=== PATIENT | female | born 1930 | race Caucasian/White ===

== ENCOUNTER → 2017-03-01 | Outpatient (CLI) | payer OTHER ==
[2017-03-01 13:41] LABS: BLOOD UREA NITROGEN 18 mg/dl (7-18); BUN/CREATININE RATIO 17.7 (10-20); CALCIUM 8.9 mg/dl (8.5-10.1); CARBON DIOXIDE 25 mmol/L (21-32); CHLORIDE 110 mmol/L (98-107); GLUCOSE 90 mg/dl (70-99); SODIUM 142 mmol/L (136-145)
== END | disposition home or self-care (01) ==
LOC: C.LABSALHI 14:41
PROVIDERS: ATTEND Nurse Practitioner Family
DX: I10 Essential (primary) hypertension (principal)

== ENCOUNTER → 2017-05-13 | Outpatient (CLI) | payer OTHER ==
[2017-05-13 17:35] LABS: MANUAL MICROSCOPIC REQUIRED? NO; REVIEW REQ? NO; URINE APPEARANCE CLOUDY (CLEAR); URINE BILIRUBIN NEG (NEG); URINE COLOR YELLOW; URINE NITRITE POS (NEG); URINE SPECIFIC GRAVITY 1.018 (1.000-1.030); UROBILINOGEN NEG (NEG)
== END | disposition home or self-care (01) ==
LOC: C.LABSALHI 17:50
PROVIDERS: ATTEND Nurse Practitioner Family
DX: R11.0 Nausea (principal)

== ENCOUNTER 2019-09-18 22:50 | Inpatient (IN) ==
[2019-09-18] MEDS ORDERED: SODIUM CHLORIDE 0.9% 1000ML 500 ML IV ONE (23:08)
[2019-09-18 23:15] LABS: Basophils # (auto) 0.01 K/uL (0-0.2); Basophils % (auto) 0.2 %; Eosinophils # (auto) 0.03 K/uL (0-0.5); Eosinophils % (auto) 0.5 %; Hematocrit (blood only) 37.9 % (37-47); Hemoglobin 12.4 g/dL (12.0-16.0); Immature Granulocytes # (auto) 0.03 K/uL (0.00-0.02); Immature Granulocytes % (auto) 0.5 %; Lymphocytes # (auto) 1.87 K/uL (1.2-3.4); Lymphocytes % (auto) 31.1 %; Mean Corpuscular Hemoglobin 29.5 pg (25-34); Mean Corpuscular Hgb Conc 32.7 g/dL (32-36); Mean Corpuscular Volume 90.2 fL (80-100); Mean Platelet Volume 12.2 fL (7.4-10.4); Monocytes # (auto) 0.72 K/uL (0.11-0.59); Neutrophils # (auto) 3.35 K/uL (1.4-6.5); Neutrophils % (auto) 55.7 %; Platelet Count 202 K/uL (130-400); RDW Coefficient of Variation 14.6 % (11.5-14.5); RDW Standard Deviation 47.5 fL (36.4-46.3); White Blood Count 6.01 K/uL (4.8-10.8)
[2019-09-18 23:25] LABS: Albumin Level 3.9 gm/dl (3.4-5.0); BUN Creatinine Ratio 16.2 (10-20); Calcium 9.3 mg/dl (8.5-10.1); Creatinine Clr Calc Pharmacy 24.2 ml/min; Est GFR (African American) 39.1; Est GFR (Non-African American) 33.8; Potassium 4.2 mmol/L (3.5-5.1)
[2019-09-18 23:30] LABS: Partial Thromboplastin Time 25.9 Seconds (21.0-31.0); Prothrombin Time 10.7 Seconds (9.0-12.0)
[2019-09-18 23:31] LABS: Bilirubin,Total 0.7 mg/dl (0.2-1); Creatine Kinase MB 2.2 ng/ml (0.5-3.6); Globulin 3.7 gm/dl (2.5-4.0); Total Protein 7.6 gm/dl (6.4-8.2); Troponin I 0.021 ng/ml (0-0.045)
[2019-09-18] MEDS ORDERED: DOPAMINE / D5W 400 MG/250 ML BAG IV SCH (23:45)
[2019-09-18] MEDS ORDERED: ATROPINE SULFATE 0.1 MG/ML 10ML SYR IV STA (23:48)
[2019-09-19 00:18] LABS: Magnesium 2.2 mg/dl (1.8-2.4); Phosphorus 3.8 mg/dl (2.5-4.9)
[2019-09-19 00:43] LABS: Appearance Urine Cloudy (Clear); Bacteria Urine Automated 4+ (Negative); Bilirubin Urine Negative (Negative); Blood Urine 1+ (Negative); Color Urine Yellow; Epithelial Cell Urine Auto 0-5 /lpf (0-5); Glucose Urine UA Negative (Negative); Ketones Urine Trace (Negative); Leukocyte Esterase Urine 3+ (Negative); Nitrite Urine Positive (Negative); Protein Urine Negative (Negative); RBC Urine Automated 0-4 /hpf (0-4); Specific Gravity Urine 1.007 (1.000-1.030); Urobilinogen Urine Negative (Negative); WBC Urine Automated >30 /hpf (0-5); pH Urine 5.5 (4.5-7.5)
--- NOTE | 2019-09-19 02:02 | History & Physical Report ---
Date of Service September 19, 2019 Assessment & Plan (1) Third degree heart block: Patient was noted to have intermittent third-degree heart block on monitor, and was confirmed on EKG. She became symptomatic while in the emergency department, when heart rate was in the upper 20s to low 30s, even though recently recorded systolic blood pressure was in the 120s-130s. Echocardiogram ordered. Present on Admission?: Yes (2) Admitted to intensive care unit: Patient is admitted to the ICU due to symptomatic intermittent third- degree heart block. Patient received 0.5 mg atropine IV x1 in the ED, and dopamine infusion to maintain heart rate in the 40s, and allowing systolic blood pressure 150-160. As noted above, patient became symptomatic when heart rate was in the upper 20s to low 30s, and asymptomatic with atropine and dopamine as noted. Present on Admission?: Yes (3) Acute kidney injury: Creatinine 1.39 upon admission, with baseline 0.95-1.00. Suspect secondary to decreased forward flow. Follow laboratory serially. Present on Admission?: Yes (4) Abnormal LFTs: AST 55, ALT 90 upon admission. May be secondary to hepatic congestion. Order ultrasound right upper quadrant of abdomen Present on Admission?: Yes (5) Dementia: Patient has a history of baseline dementia, limiting HPI and ROS. Present on Admission?: Yes History of Present Illness Chief Complaint: The patient was brought to the emergency department from her residence at [facility] due to persistent lightheadedness, dizziness and fatigue over the past few days. Primary Care Provider: [facility] The patient is an 88-year-old female with a past medical history including hypertension, dementia, osteoarthritis, and allergic rhinitis. She is brought to the emergency department due to a few days of persistent lightheadedness, dizziness and fatigue. In the emergency department, work-up was significant for mildly abnormal laboratories: AST 55, ALT 90 and creatinine 1.39. Heart monitor and EKG confirmed intermittent third-degree heart block alternating with sinus bradycardia. The patient did become symptomatic with the third-degree heart block when her heart rate was in the 20s. She was given atropine 0.5 mg IV with improvement baseline heart rate and started on dopamine infusion. The patient became symptomatic when her systolic blood pressure remained in the 120s to 130s while her heart rate was in the 20s, which prompted the use of atropine and dopamine. Allergies Allergy/AdvReac Type Severity Reaction Status Date / Time No Known Allergies Allergy Unverified 08/17/19 13:48 Home Medications Home Medications Medication Instructions Recorded Confirmed Type acetaminophen [Tylenol Extra 500 mg PO QID PRN MDD 3000 mg 08/17/19 09/18/19 History Strength] loratadine [Claritin] 10 mg PO DAILY PRN 08/17/19 09/18/19 History magnesium hydroxide [Milk of 30 ml PO DAILY 08/17/19 09/18/19 History Magnesia] ondansetron HCl [Zofran] 4 mg PO Q6H PRN 08/17/19 09/18/19 History oxycodone [Roxicodone] 5 mg PO DAILY PRN 08/17/19 09/18/19 History sennosides [Senokot] 8.6 mg PO DAILY 08/17/19 09/18/19 History Past Med/Surg History Social History Preferred Language: Indonesian Communication Ability: Effective Electronic Technician Required: No Beliefs That Will Affect Care: None Current Living Situation: Personal Care Facility Other Information That Helps Us Care for You: No Feels Safe at Home: Declines to Answer Safety Concerns: Feels Safe At This Time Smoking Status: Unknown if ever smoked Hx Substance Use: No Review of Systems Review of Systems: Unobtainable due to cognitive status Physical Exam Physical Exam: The patient is awake, and responsive, normocephalic and atraumatic, sitting upright in bed and in no acute distress. HEENT--PERRL, EOMI, mucous membranes and oropharynx dry. Neck--supple. No JVD. No bruits. Thyroid normal, trachea midline, no adenopathy. Heart--bradycardic, systolic heart murmur left lower sternal border. No rubs or gallops. Lungs--clear bilaterally, no respiratory distress, no accessory muscle use. Abdomen--normal bowel sounds and soft. Nontender. Nondistended. Extremities--no cyanosis or clubbing. No edema. Dermatologic--normal skin turgor, normal color, no abnormal lymph nodes, no rash. Neurologic--cranial nerves II through XII grossly intact. Rheumatologic--normal range of motion. Psychiatric--normal affect, confused. Results & Data Vital Signs (Past 12 Hours) Vital Signs Temp Pulse Pulse Resp BP BP Pulse Ox 09/19/19 00:45 44 L 14 160/62 H 100 09/19/19 00:33 50 L 18 198/79 H 100 09/18/19 23:16 67 61 20 100 09/18/19 22:58 98.2 F 38 L 18 179/67 H 100 Laboratory Results Laboratory Results WBC 6.01 K/uL (4.8-10.8) 09/18/19 22:23 RBC 4.20 M/uL (4.2-5.4) 09/18/19 22:23 Hgb 12.4 g/dL (12.0-16.0) 09/18/19 22:23 Hct 37.9 % (37-47) 09/18/19 22:23 MCV 90.2 fL (80-100) 09/18/19 22:23 MCH 29.5 pg (25-34) 09/18/19 22:23 MCHC 32.7 g/dL (32-36) 09/18/19 22:23 RDW Std Deviation 47.5 fL (36.4-46.3) H 09/18/19 22:23 RDW Coeff of Micaela 14.6 % (11.5-14.5) H 09/18/19 22:23 Plt Count 202 K/uL (130-400) 09/18/19 22:23 MPV 12.2 fL (7.4-10.4) H 09/18/19 22:23 Immature Gran % (Auto) 0.5 % 09/18/19 22:23 Neut % (Auto) 55.7 % 09/18/19 22:23 Lymph % (Auto) 31.1 % 09/18/19 22:23 Walsh % (Auto) 12.0 % 09/18/19 22:23 Eos % (Auto) 0.5 % 09/18/19 22:23 Baso % (Auto) 0.2 % 09/18/19 22:23 Immature Gran # (Auto) 0.03 K/uL (0.00-0.02) H 09/18/19 22:23 Neut # (Auto) 3.35 K/uL (1.4-6.5) 09/18/19 22:23 Lymph # (Auto) 1.87 K/uL (1.2-3.4) 09/18/19 22:23 Walsh # (Auto) 0.72 K/uL (0.11-0.59) H 09/18/19 22:23 Eos # (Auto) 0.03 K/uL (0-0.5) 09/18/19 22:23 Baso # (Auto) 0.01 K/uL (0-0.2) 09/18/19 22:23 PT 10.7 Seconds (9.0-12.0) 09/18/19 22:23 INR 1.0 (0.9-1.1) 09/18/19 22:23 APTT 25.9 Seconds (21.0-31.0) 09/18/19 22: PTT Ratio 1.0 09/18/19 22:23 Sodium 138 mmol/L (136-145) 09/18/19 22:23 Potassium 4.2 mmol/L (3.5-5.1) 09/18/19 22:23 Chloride 107 mmol/L (98-107) 09/18/19 22:23 Carbon Dioxide 21 mmol/L (21-32) 09/18/19 22:23 Anion Gap 10.0 (3-11) 09/18/19 22:23 BUN 23 mg/dl (7-18) H 09/18/19 22:23 Creatinine 1.39 mg/dl (0.6-1.2) H 09/18/19 22:23 Est Cr Clr Drug Dosing 24.2 ml/min 09/18/19 22:23 Est GFR ( Amer) 39.1 09/18/19 22:23 Est GFR (Non-Af Amer) 33.8 09/18/19 22:23 BUN/Creatinine Ratio 16.2 (10-20) 09/18/19 22:23 Glucose 96 mg/dl (70-99) 09/18/19 22:23 POC Glucose 121 mg/dl (70-99) H 09/19/19 03:33 Calcium 9.3 mg/dl (8.5-10.1) 09/18/19 22:23 Phosphorus 3.8 mg/dl (2.5-4.9) 09/18/19 22:23 Magnesium 2.2 mg/dl (1.8-2.4) 09/18/19 22:23 Total Bilirubin 0.7 mg/dl (0.2-1) 09/18/19 22:23 AST 55 U/L (15-37) H 09/18/19 22:23 ALT 90 U/L (12-78) H 09/18/19 22:23 Alkaline Phosphatase 93 U/L (45-117) 09/18/19 22:23 Total Creatine Kinase 67 U/L (26-192) 09/18/19 22:23 CK-MB (CK-2) 2.2 ng/ml (0.5-3.6) 09/18/19 22: CK/CKMB % Calc 3.3 (0-3.0) H 09/18/19 22: Troponin I 0.021 ng/ml (0-0.045) 09/18/19 22: Total Protein 7.6 gm/dl (6.4-8.2) 09/18/19 22: Albumin 3.9 gm/dl (3.4-5.0) 09/18/19 22: Globulin 3.7 gm/dl (2.5-4.0) 09/18/19 22: Albumin/Globulin Ratio 1.0 (0.9-2) 09/18/19 22: Lipase 104 U/L (73-393) 09/18/19 22: Urine Color Yellow 09/19/19 00:32 Urine Appearance Cloudy (Clear) A 09/19/19 00:32 Urine pH 5.5 (4.5-7.5) 09/19/19 00:32 Ur Specific [place] 1.007 (1.000-1.030) 09/19/19 00:32 Urine Protein Negative (Negative) 09/19/19 00:32 Urine Glucose (UA) Negative (Negative) 09/19/19 00:32 Urine Ketones Trace (Negative) H 09/19/19 00:32 Urine Blood 1+ (Negative) H 09/19/19 00:32 Urine Nitrite Positive (Negative) A 09/19/19 00:32 Urine Bilirubin Negative (Negative) 09/19/19 00:32 Urine Urobilinogen Negative (Negative) 09/19/19 00:32 Ur Leukocyte Esterase 3+ (Negative) H 09/19/19 00:32 Urine WBC (Auto) >30 /hpf (0-5) H 09/19/19 00:32 Urine RBC (Auto) 0-4 /hpf (0-4) 09/19/19 00:32 U Hyaline Cast (Auto) 1-5 /lpf (0-5) 09/19/19 00:32 U Epithel Cells (Auto) 0-5 /lpf (0-5) 09/19/19 00:32 Urine Bacteria (Auto) 4+ (Negative) H 09/19/19 00:32 None Code Status & VTE Plan Code Status Full code. Ale De was contacted, there was no POLST form on record and no definitive statement regarding CODE STATUS, therefore the patient was treated as full resuscitation. Power of carbider was attempted to be called on phone, and was not reachable. VTE Prophylaxis Plan VTE Prophylaxis will be ordered: Yes Critical Care Time Total Critical Care Time: 40 Total critical care time was 40 minutes PG Care Time/CCT Total # of Minutes Spent Total Time Spent with Patient: Total time spent is greater than 50% in coordination of care (as documented) at patient's floor/unit and/or counseling patient: Total Critical Care Time: 40 Coding Level of Care Code 50062 Initial Inpt Care Lvl 3 Diagnoses Third degree heart block I44.2 Admitted to intensive care unit Z78.9 Acute kidney injury N17.9 Abnormal LFTs R94.5 Dementia F03.90 Time Spent (min) 40
[2019-09-19] MEDS ORDERED: HydrALAZINE HCL 20 MG/ML VIAL IV ONE (03:07)
[2019-09-19] MEDS ORDERED: ICU PROTOCOL FOR HYPERGLYCEMIA PRN (03:12)
--- NOTE | 2019-09-19 03:15 | Critical Care Consultation ---
Date of Consultation September 19, 2019 Assessment & Plan (1) Third degree heart block: Reason Critically Ill: 88-year-old female [facility] from [facility] in third-degree heart block, required atropine followed by dopamine drip and transferred to ICU Neuro - Dementiano home meds -Fall precaution Cardiac - Third-degree AV blockpatient with heart rate in the 20s was treated with atropine and started on dopamine drip -Currently off dopamine drip, still and third-degree block with ventricularly rate in upper 40s, hemodynamically stable -Cardiology consulted, will follow recs, patient will likely need pacer -Cardiac enzymes negative -monitor on telemetry, - consider transvenous pacing if needed, was maintaining rate on dopamine drip which is currently turned off which we would use first HTNdo not use beta-georgina -History of hypertension and currently hypertensive however no meds on med list sent from [facility] Respiratory - No history respiratory disease, currently maintaining sats on room air We will monitor with continuous pulse ox GI - N.p.o. for now Mild transaminitisAST and ALT now mildly elevated but normal on prior admissions -Likely shock liver from poor perfusion while heart rate was in the 20s -We will trend, expect to normalize RENAL/LYTES - AKIbaseline creatinine from prior admissions 0.9, now 1.39 -Likely prerenal, ATN?, Dehydration? - will start IV fluid resuscitation and trend with routine BMPs -Keep maps greater than 65 -Avoid nephrotoxins -Trend - Strict I's and O's ENDO - No history diabetes or thyroid disease, will check TSH HEME - H&H stable, monitor ID - Urinalysis positive for bacteria, culture pending, start Rocephin -Cultures grew E. coli on previous admissions, nonresistant LINES/IV ACCESS - Peripheral IVs DVT PROPHYLAXIS - SCDs, heparin I have personally spent 30 minutes of critical care time in the direct management of this patient. This is a life/limb threatening event. This includes time spent evaluating patient, direct bedside care, chart review, placing orders, interpretation of diagnostic studies, discussion with consultants, patient, and family members, as well as other required patient management activities. This time is exclusive of all separately billable procedures, and teaching time and separate from and in addition to any other critical care service time. Thank you for allowing us to participate in the care of this patient. Please refer to my attending physician's documentation for any further recommendations. (2) Admitted to intensive care unit: (3) Dementia: (4) Hypertension: (5) Acute kidney injury: History of Present Illness Attending Physician: Chuy Gillette MD History of Present Illness 88-[facility]-old [facility] from [facility] with past medical history dementia, HTN, HLD who presented to the emergency department with complaints of lightheadedness, dizziness, fatigue past few days. She was found to be in intermittent third-degree heart block with bradycardia that would enter heart rate of 20s periodically. She was given 1.5 mg atropine and was started on a dopamine drip. She was then transferred to the ICU. On arrival to the ICU patient's heart rate was in the 60s and she was hypertensive. Dopamine drip was stopped and patient remained asymptomatic of heart rate 40s to 50s. Patient denies headache, dizziness, syncope, sore throat, shortness of breath, chest pain, palpitations, nausea or vomiting, abdominal pain. Patient states she feels fine and wants to go home however she is significantly demented. A was unsuccessfully attempted to be contacted regarding CODE STATUS as the [facility] was unable to provide patient's CODE STATUS upon request. Patient currently remains full code and will remain in ICU for now. We will further attempt to contact POA. Allergies Allergy/AdvReac Type Severity Reaction Status Date / Time No Known Allergies Allergy Unverified 08/17/19 13:48 Home Medications Home Medications Medication Instructions Recorded Confirmed Type acetaminophen [Tylenol Extra 500 mg PO QID PRN MDD 3000 mg 08/17/19 09/18/19 History Strength] loratadine [Claritin] 10 mg PO DAILY PRN 08/17/19 09/18/19 History magnesium hydroxide [Milk of 30 ml PO DAILY 08/17/19 09/18/19 History Magnesia] ondansetron HCl [Zofran] 4 mg PO Q6H PRN 08/17/19 09/18/19 History oxycodone [Roxicodone] 5 mg PO DAILY PRN 08/17/19 09/18/19 History sennosides [Senokot] 8.6 mg PO DAILY 08/17/19 09/18/19 History Patient History Social History Preferred Language: Latvian Communication Ability: Effective Human Resources Operations Manager Required: No Beliefs That Will Affect Care: None Current Living Situation: Personal Care Facility Other Information That Helps Us Care for You: No Feels Safe at Home: Declines to Answer Safety Concerns: Feels Safe At This Time Smoking Status: Unknown if ever smoked Hx Substance Use: No Review of Systems Review of Systems: All systems reviewed & are unremarkable except as noted in HPI & below Physical Exam Constitutional: + frail appearing, cooperative and comfortable Eyes: PERRL, conjunctivae normal, anicteric sclerae ENMT: external ear and nose normal, oropharynx normal Neck: trachea midline, no thyromegaly Respiratory: normal respiratory effort, lungs clear to auscultation Cardiovascular: Rate/Rhythm: + bradycardic Heart Sounds: + murmur Vessels: no JVD Extremities: normal capillary refill; no edema Gastrointestinal (Abdomen): normal bowel sounds, soft, nontender, no h epatosplenomegaly Musculoskeletal: no cyanosis or clubbing, extremities motor strength 5/5 Skin: no rashes, warm and dry Neurologic: PERRL, EOMI, accommodation nl, no face palsy, no dysarthria Psychiatric: Orientation: oriented to person and cooperative; + not oriented to place and + not oriented to time Results & Data ([facility]) Vital Signs (Past 12 Hours) Vital Signs Temp Pulse Pulse Resp BP BP Pulse Ox 09/19/19 00:45 44 L 14 160/62 H 100 09/19/19 00:33 50 L 18 198/79 H 100 09/18/19 23:16 67 61 20 100 09/18/19 22:58 36.8 C 38 L 18 179/67 H 100 Coding Level of Care Code Critical Care 1st 30-74 mins Diagnoses Third degree heart block I44.2 Admitted to intensive care unit Z78.9 Dementia F03.90 Hypertension I10 Acute kidney injury N17.9
[2019-09-19] MEDS ORDERED: PNEUMOCOCCAL POLYSACCHARIDES 25 MCG/0.5 ML VIAL/SYR IM ONE (03:44)
[2019-09-19] MEDS ORDERED: PNEUMOCOCCAL ADMINISTRATION CHARGE ONE (03:44)
--- NOTE | 2019-09-19 03:47 | Emergency Department Note ---
Entered by Bubba Giraldo acting as a scribe for History of Present Illness General Chief complaint: Arrhythmia/Palpitations Stated complaint: DIZZY Time Seen by Provider: 09/18/19 22:58 Source: patient and other (nurse) Limitations: other (dementia) History of Present Illness Onset (ago): day(s) (a few days ago) Location: head Pain Consistency: + other (persistent) Quality: + other (lightheadedness) Associated symptoms: + other (Positive for dizziness. Negative for CP and SOB.) The patient is an 88 year old female who presents to the emergency department with complaints of persistent lightheadedness beginning a few days ago. Per nurse, the patient is a resident at [facility]. She states that the patient has been dizzy and lightheaded for the last few days. She notes that the patient has not had any CP and SOB. She reports that the patient has a history of dementia and hypertension. The patient states that she is not on any blood thinners. HPI limited secondary to dementia. Home Medications Home Medications Medication Instructions Recorded Confirmed Type acetaminophen [Tylenol Extra 500 mg PO QID PRN MDD 3000 mg 08/17/19 09/18/19 History Strength] loratadine [Claritin] 10 mg PO DAILY PRN 08/17/19 09/18/19 History magnesium hydroxide [Milk of 30 ml PO DAILY 08/17/19 09/18/19 History Magnesia] ondansetron HCl [Zofran] 4 mg PO Q6H PRN 08/17/19 09/18/19 History oxycodone [Roxicodone] 5 mg PO DAILY PRN 08/17/19 09/18/19 History sennosides [Senokot] 8.6 mg PO DAILY 08/17/19 09/18/19 History Allergies Allergy/AdvReac Type Severity Reaction Status Date / Time No Known Allergies Allergy Unverified 08/17/19 13:48 Past Med/Surg History Social History Preferred Language: Khmer Communication Ability: Effective Road Engineer Required: No Beliefs That Will Affect Care: None Current Living Situation: Personal Care Facility Other Information That Helps Us Care for You: No Feels Safe at Home: Declines to Answer Safety Concerns: Feels Safe At This Time Smoking Status: Unknown if ever smoked Hx Substance Use: No Review of Systems ROS limited secondary to dementia. Physical Exam Vital Signs Vital Signs - 24 hr 09/18/19 22:58 09/18/19 23:16 09/19/19 00:33 Temperature 36.8 C Temperature Source Oral Pulse Rate 38 L 67 Pulse Rate [Finger] 61 50 L Pulse Rhythm Irregular Irregular Pulse Rhythm [Finger] Regular Regular Pulse Strength Normal Pulse Strength [Finger] Normal Normal Respiratory Rate 18 20 18 Respiratory Effort / Characteristics Non-Labored Spontaneous Non-Labored Spontaneous Non-Labored Spontaneous Respiratory Depth Normal Normal Normal Respiratory Pattern Regular Regular Regular Blood Pressure 179/67 H Blood Pressure [Right Arm] 198/79 H Blood Pressure Mean 104 Blood Pressure Mean [Right Arm] 118 Blood Pressure Position Lying Blood Pressure Position [Right Arm] Lying Lying Pulse Oximetry 100 100 100 Oxygen Delivery Method Room Air Room Air Room Air Sepsis Recent Fever Within 48 Hours No Sepsis New/Unexplained Change in Mental Status No Sepsis Action Taken by Nursing No Action Required 09/19/19 00:45 Temperature Temperature Source Pulse Rate 44 L Pulse Rate [Finger] Pulse Rhythm Pulse Rhythm [Finger] Pulse Strength Pulse Strength [Finger] Respiratory Rate 14 Respiratory Effort / Characteristics Respiratory Depth Respiratory Pattern Blood Pressure 160/62 H Blood Pressure [Right Arm] Blood Pressure Mean 94 Blood Pressure Mean [Right Arm] Blood Pressure Position Blood Pressure Position [Right Arm] Pulse Oximetry 100 Oxygen Delivery Method Sepsis Recent Fever Within 48 Hours Sepsis New/Unexplained Change in Mental Status Sepsis Action Taken by Nursing GENERAL: Awake, alert, well-appearing, in no acute distress HENT: Normocephalic, atraumatic. Oropharynx unremarkable. EYES: Normal conjunctiva. Sclera non-icteric. NECK: Supple. No nuchal rigidity. FROM. No JVD. RESPIRATORY: Clear to auscultation. CARDIAC: Regular rate, normal rhythm. Extremities warm and well perfused. Pulses equal. ABDOMEN: Soft, non-distended. No tenderness to palpation. No rebound or guarding. No masses. RECTAL: Deferred. MUSCULOSKELETAL: Chest examination reveals no tenderness. The back is symmetrical on inspection without obvious abnormality. There is no CVA tenderness to palpation. No joint edema. LOWER EXTREMITIES: Calves are equal size bilaterally and non-tender. No edema. No discoloration. NEURO: Normal sensorium. No sensory or motor deficits noted. Does not know the day of the week but is able to answer all questions. SKIN: No rash or jaundice noted. Course Course 2300: The patient was evaluated in room C3. A complete history and physical exam was performed. 2354: The patient had a brief episode of asystole. She responded to atropine and she was placed on a dopamine drip. I attempted to contact the daughter but got no answer so I left a message. 0005: Upon reevaluation, the patient is stable. I discussed the findings and the treatment plan with the patient. She expresses agreement and understanding. I spoke with Dr. Gillette of the [facility] Hospitalist Service. The patient will be evaluated for further management. Reevaluation(s) Additional Reevaluation(s): I reviewed the patient's case with Dr. Gillette - Hospitalist, [facility]. He will evaluate the patient for further management. Consultations Time: 00:05 Administered Medications Dopamine HCl/Dextrose (Dopamine / D5w) 400 mg in 250 mls @ 11.963 mls/hr IV .[id number] [facility]; Protocol Stop: 10/18/19 23:44 Last Titration: 09/19/19 03:00 Dose: 0 mcg/kg/min, 0 mls/hr Documented by: [id number] Titration: 09/19/19 00:50 Dose: 5 mcg/kg/min, 12 mls/hr Documented by: [id number] Titration: 09/19/19 00:48 Dose: 10 mcg/kg/min, 23.9 mls/hr Documented by: [id number] Admin: 09/19/19 00:34 Dose: 5 mcg/kg/min, 12 mls/hr Documented by: [id number] Cosigned by: [id number] Discontinued Medications Atropine Sulfate (Atropine Sulfate) 0.5 mg IV NOW STA Stop: 09/18/19 23:49 Last Admin: 09/18/19 23:48 Dose: 0.5 mg Documented by: [id number] Hydralazine HCl (Hydralazine Hcl) 5 mg IV NOW ONE Stop: 09/19/19 03:08 Last Admin: 09/19/19 03:22 Dose: 5 mg Documented by: [id number] Sodium Chloride (Nss 1000ml) 500 mls @ 999 mls/hr IV .Q31M ONE Stop: 09/18/19 23:38 Last Infusion: 09/19/19 00:35 Dose: 0 mls/hr Documented by: [id number] Admin: 09/19/19 00:04 Dose: 999 mls/hr Documented by: [id number] Critical Care Time Critical Care Time: Yes Total Critical Care Time: 30 I have personally spent 30 minutes of critical care time in the direct management of this patient. This includes bedside care, interpretation of diagnostic studies, and testing, discussion with consultants, patient, and family members, and other required patient management activities. This 30 minutes is in excess of all separately billable procedures. Medical Decision Making Differential Diagnosis Differential Diagnosis includes but is not limited to dehydration, stroke, anemia, hypoglycemia, hyponatremia, hypernatremia, urinary tract infection, pneumonia, bronchitis, sepsis, gastroenteritis, additional abdominal pathology, metabolic abnormalities and infections. Medical Records Attestation: I reviewed the patient's medical records. Home Medications Current Medication List: was personally reviewed by me Laboratory Data Attestation: I reviewed the patient's lab results. Result diagrams: 09/18/19 22:23 09/18/19 22:23 Lab Results 09/18/19 09/18/19 09/18/19 Range/Units 22:23 22:23 22:23 WBC 6.01 (4.8-10.8) K/uL RBC 4.20 (4.2-5.4) M/uL Hgb 12.4 (12.0-16.0) g/dL Hct 37.9 (37-47) % MCV 90.2 (80-100) fL MCH 29.5 (25-34) pg MCHC 32.7 (32-36) g/dL RDW Std Deviation 47.5 H (36.4-46.3) fL RDW Coeff of Micaela 14.6 H (11.5-14.5) % Plt Count 202 (130-400) K/uL MPV 12.2 H (7.4-10.4) fL Immature Gran % (Auto) 0.5 % Neut % (Auto) 55.7 % Lymph % (Auto) 31.1 % Oxford % (Auto) 12.0 % Eos % (Auto) 0.5 % Baso % (Auto) 0.2 % Immature Gran # (Auto) 0.03 H (0.00-0.02) K/uL Neut # (Auto) 3.35 (1.4-6.5) K/uL Lymph # (Auto) 1.87 (1.2-3.4) K/uL Oxford # (Auto) 0.72 H (0.11-0.59) K/uL Eos # (Auto) 0.03 (0-0.5) K/uL Baso # (Auto) 0.01 (0-0.2) K/uL PT 10.7 (9.0-12.0) Seconds INR 1.0 (0.9-1.1) APTT 25.9 (21.0-31.0) Seconds PTT Ratio 1.0 Sodium 138 (136-145) mmol/L Potassium 4.2 (3.5-5.1) mmol/L Chloride 107 (98-107) mmol/L Carbon Dioxide 21 (21-32) mmol/L Anion Gap 10.0 (3-11) BUN 23 H (7-18) mg/dl Creatinine 1.39 H (0.6-1.2) mg/dl Est Cr Clr Drug Dosing 24.2 ml/min Est GFR ( Amer) 39.1 Est GFR (Non-Af Amer) 33.8 BUN/Creatinine Ratio 16.2 (10-20) Glucose 96 (70-99) mg/dl POC Glucose (70-99) mg/dl Calcium 9.3 (8.5-10.1) mg/dl Phosphorus 3.8 (2.5-4.9) mg/dl Magnesium 2.2 (1.8-2.4) mg/dl Total Bilirubin 0.7 (0.2-1) mg/dl AST 55 H (15-37) U/L ALT 90 H (12-78) U/L Alkaline Phosphatase 93 (45-117) U/L Total Creatine Kinase 67 (26-192) U/L CK-MB (CK-2) 2.2 (0.5-3.6) ng/ml CK/CKMB % Calc 3.3 H (0-3.0) Troponin I 0.021 (0-0.045) ng/ml Total Protein 7.6 (6.4-8.2) gm/dl Albumin 3.9 (3.4-5.0) gm/dl Globulin 3.7 (2.5-4.0) gm/dl Albumin/Globulin Ratio 1.0 (0.9-2) Lipase 104 (73-393) U/L Urine Color Urine Appearance (Clear) Urine pH (4.5-7.5) Ur Specific Burns (1.000-1.030) Urine Protein (Negative) Urine Glucose (UA) (Negative) Urine Ketones (Negative) Urine Blood (Negative) Urine Nitrite (Negative) Urine Bilirubin (Negative) Urine Urobilinogen (Negative) Ur Leukocyte Esterase (Negative) Urine WBC (Auto) (0-5) /hpf Urine RBC (Auto) (0-4) /hpf U Hyaline Cast (Auto) (0-5) /lpf U Epithel Cells (Auto) (0-5) /lpf Urine Bacteria (Auto) (Negative) 09/19/19 09/19/19 Range/Units 00:06 00:32 WBC (4.8-10.8) K/uL RBC (4.2-5.4) M/uL Hgb (12.0-16.0) g/dL Hct (37-47) % MCV (80-100) fL MCH (25-34) pg MCHC (32-36) g/dL RDW Std Deviation (36.4-46.3) fL RDW Coeff of Micaela (11.5-14.5) % Plt Count (130-400) K/uL MPV (7.4-10.4) fL Immature Gran % (Auto) % Neut % (Auto) % Lymph % (Auto) % Oxford % (Auto) % Eos % (Auto) % Baso % (Auto) % Immature Gran # (Auto) (0.00-0.02) K/uL Neut # (Auto) (1.4-6.5) K/uL Lymph # (Auto) (1.2-3.4) K/uL Oxford # (Auto) (0.11-0.59) K/uL Eos # (Auto) (0-0.5) K/uL Baso # (Auto) (0-0.2) K/uL PT (9.0-12.0) Seconds INR (0.9-1.1) APTT (21.0-31.0) Seconds PTT Ratio Sodium (136-145) mmol/L Potassium (3.5-5.1) mmol/L Chloride (98-107) mmol/L Carbon Dioxide (21-32) mmol/L Anion Gap (3-11) BUN (7-18) mg/dl Creatinine (0.6-1.2) mg/dl Est Cr Clr Drug Dosing ml/min Est GFR ( Amer) Est GFR (Non-Af Amer) BUN/Creatinine Ratio (10-20) Glucose (70-99) mg/dl POC Glucose 108 H (70-99) mg/dl Calcium (8.5-10.1) mg/dl Phosphorus (2.5-4.9) mg/dl Magnesium (1.8-2.4) mg/dl Total Bilirubin (0.2-1) mg/dl AST (15-37) U/L ALT (12-78) U/L Alkaline Phosphatase (45-117) U/L Total Creatine Kinase (26-192) U/L CK-MB (CK-2) (0.5-3.6) ng/ml CK/CKMB % Calc (0-3.0) Troponin I (0-0.045) ng/ml Total Protein (6.4-8.2) gm/dl Albumin (3.4-5.0) gm/dl Globulin (2.5-4.0) gm/dl Albumin/Globulin Ratio (0.9-2) Lipase (73-393) U/L Urine Color Yellow Urine Appearance Cloudy A (Clear) Urine pH 5.5 (4.5-7.5) Ur Specific Burns 1.007 (1.000-1.030) Urine Protein Negative (Negative) Urine Glucose (UA) Negative (Negative) Urine Ketones Trace H (Negative) Urine Blood 1+ H (Negative) Urine Nitrite Positive A (Negative) Urine Bilirubin Negative (Negative) Urine Urobilinogen Negative (Negative) Ur Leukocyte Esterase 3+ H (Negative) Urine WBC (Auto) >30 H (0-5) /hpf Urine RBC (Auto) 0-4 (0-4) /hpf U Hyaline Cast (Auto) 1-5 (0-5) /lpf U Epithel Cells (Auto) 0-5 (0-5) /lpf Urine Bacteria (Auto) 4+ H (Negative) Imaging Data Attestation: I personally reviewed and interpreted this imaging study as follows: My Impression: 1 VIEW CHEST X-RAY: No evidence of pneumonia, congestion, or pneumothorax. Chronic changes. ECG Data Attestation: I personally reviewed and interpreted this ECG as follows: Indication: + palpitations Rate (beats per minute): ventricular rate [address] segments: no ST depression and no ST elevation Additional Comments: 3rd degree heart block, QTC 423. EKG 2: Sinus bradycardia, prolonged QT, rate of 47. Blood Pressure Blood Pressure Findings: Elevated blood pressure Blood Pressure Disposition: further management by hospitalist MDM Narrative This is an 88-year-old female who presents to the emergency department with third-degree block. The paperwork accompanying this patient is unclear whether she is a full code. I did contact this patient's daughter however there was no answer. Messages were left. In the meanwhile patient was given magnesium normal saline bolus and atropine. The atropine converted the patient back to a normal sinus rhythm. I did discuss the case with the hospitalist service as well as the cardiology service. The decision was made to start the patient on a dopamine drip. Patient is in agreement with the treatment plan. Impression & Plan Third degree heart block, Dementia, Hypertension, Acute kidney injury Discharge Plan Visit Data Chief Complaint: Arrhythmia/Palpitations Stated Complaint: DIZZY ED Provider: Cali Santacruz Discharge Problem: Third degree heart block, Dementia, Hypertension, Acute kidney injury Patient Disposition: Being Evaluated by Hospitalist Discharge Instructions Interventions: ED Discharge Assessment Last Done: 09/19/19 02:18 The scribe's documentation has been prepared under my direction and personally reviewed by me in its entirety. I confirm that the note above accurately reflects all work, treatment, procedures, and medical decision making performed by me.
[2019-09-19] MEDS ORDERED: SODIUM CHLORIDE 0.9% 1000ML 1,000 ML IV SCH (04:00)
[2019-09-19] MEDS: cefTRIAXone SODIUM 1,000 MG in DEXTROSE 5% 50 ML IV SCH (04:31)
[2019-09-19 04:49] LABS: Basophils # (auto) 0.01 K/uL (0-0.2); Basophils % (auto) 0.1 %; Eosinophils # (auto) 0.02 K/uL (0-0.5); Eosinophils % (auto) 0.3 %; Hematocrit (blood only) 38.3 % (37-47); Immature Granulocytes # (auto) 0.04 K/uL (0.00-0.02); Immature Granulocytes % (auto) 0.5 %; Lymphocytes # (auto) 1.33 K/uL (1.2-3.4); Lymphocytes % (auto) 17.9 %; Mean Corpuscular Hemoglobin 30.1 pg (25-34); Mean Corpuscular Hgb Conc 33.9 g/dL (32-36); Mean Corpuscular Volume 88.7 fL (80-100); Mean Platelet Volume 11.5 fL (7.4-10.4); Monocytes # (auto) 0.73 K/uL (0.11-0.59); Monocytes % (auto) 9.8 %; Neutrophils # (auto) 5.32 K/uL (1.4-6.5); Neutrophils % (auto) 71.4 %; Platelet Count 197 K/uL (130-400); RDW Coefficient of Variation 14.3 % (11.5-14.5); RDW Standard Deviation 46.7 fL (36.4-46.3); Red Blood Count 4.32 M/uL (4.2-5.4); White Blood Count 7.45 K/uL (4.8-10.8)
[2019-09-19 05:15] LABS: INR 1.1 (0.9-1.1); Partial Thromboplastin Ratio 0.9; Partial Thromboplastin Time 25.5 Seconds (21.0-31.0); Prothrombin Time 10.8 Seconds (9.0-12.0)
[2019-09-19 06:12] LABS: Albumin Level 3.8 gm/dl (3.4-5.0); BUN Creatinine Ratio 16.8 (10-20); Bilirubin Direct 0.2 mg/dl (0-0.2); Bilirubin,Total 0.9 mg/dl (0.2-1); Calcium 9.1 mg/dl (8.5-10.1); Est GFR (African American) 46.7; Est GFR (Non-African American) 40.3; Magnesium 2.2 mg/dl (1.8-2.4); Phosphorus 3.2 mg/dl (2.5-4.9); Potassium 3.5 mmol/L (3.5-5.1); Total Protein 7.5 gm/dl (6.4-8.2)
--- NOTE | 2019-09-19 06:44 | Ultrasound Report ---
ABDOMINAL ULTRASOUND, RIGHT UPPER QUADRANT HISTORY: abnormal LFT's, 3rd degree HB. COMPARISON: Abdominal series August 17, 2019. FINDINGS: Exam is compromised by suboptimal penetration. No hepatic lesions are identified and there is no biliary ductal dilatation. The common bile duct measures 4 mm in caliber. No gallstones are not ed. There is no gallbladder wall thickening. The pancreatic body is normal. Head and tail are obscure d. There is no right hydronephrosis. IMPRESSION: 1. No gallstones or biliary ductal dilatation. 2. Exam mildly compromised by suboptimal penetration. Partially obscured pancreas. ACT 112: Negative or not required by law. Electronically signed by: Srikanth Euceda M.D. 09/19/2019 6:42 AM
--- NOTE | 2019-09-19 06:52 | XRay Report ---
XR chest 1V portable CLINICAL HISTORY: 88 years-old Female presenting with Chest Pain. TECHNIQUE: Portable upright AP view of the chest was obtained. COMPARISON: 08/17/2019. FINDINGS: Atherosclerosis of the aortic arch. Cardiac silhouette normal in size. Elevation of the right hemidia phragm as on prior exam. Heterogeneity lung parenchyma. Rounded lucency at the left lung base as on p rior exam. Minimal basilar opacities. No pleural effusion or pneumothorax. Degenerative changes of th e thoracic spine. Scoliotic curvature of the spine also noted. Degenerative changes of the glenohumer al joints. Surgical clips project over the right axilla. Right lateral rib fractures may be present. Mild gaseous distention of bowel. IMPRESSION: 1. Minimal basilar opacities likely atelectasis or scarring. No convincing evidence of acute cardiop ulmonary disease. 2. Rounded lucency at the left lung base may the artifactual related to overlapping shadows or could suggest the presence of a hernia. This is unchanged. ACT 112: Negative or not required by law. Electronically signed by: Nikunj Adams M.D. 09/19/2019 6:51 AM
[2019-09-19] MEDS ORDERED: POTASSIUM CHLORIDE 20 MEQ TABCR PO STA ×2 (07:57→11:35)
--- NOTE | 2019-09-19 08:03 | Hospitalist Progress Note ---
Date of Service September 19, 2019 Assessment & Plan (1) Third degree heart block: Pacemaker placed in the left chest without issue, for intermittent third- degree heart block. Echocardiogram: Left ventricular systolic function is normal. No regional wall motion abnormality noted. There is borderline concentric left ventricular hypertrophy. Ejection fraction is 65 to 70%. 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 . (2) Admitted to intensive care unit: Patient is admitted to the ICU due to symptomatic intermittent third- degree heart block. Patient received 0.5 mg atropine IV x1 in the ED, and dopamine infusion to maintain heart rate in the 40s, and allowing systolic blood pressure 150-160. As noted above, patient became symptomatic when heart rate was in the upper 20s to low 30s, and asymptomatic with atropine and dopamine as noted. (3) Acute kidney injury: Creatinine 1.39 upon admission, with baseline 0.95-1.00. Avoid nephrotoxic agents Continue monitoring creatinine and GFR (4) Abnormal LFTs: AST 55, ALT 90-->44/82 upon admission. Continue trending down (5) Dementia: Patient has a history of baseline dementia, limiting HPI and ROS. Subjective Patient seen and examined at the bedside. Patient is s/p pacemaker placement. Patient tolerated procedure well. Her heart rate is 92 now beats per minute. Patient continues to be severely demented and it is difficult to keep her from raising her left hand to prevent the pacemaker to be dislodged. This is patient's baseline. Patient is poor historian and due to severe dementia it is difficult to review systems with her. Patient is now able to eat but needs sitter one-to-one who will observe her and feed her. Patient is not febrile. Review of Systems Review of Systems: All systems reviewed & are unremarkable except as noted in HPI & below Physical Exam Constitutional: WD/WN, vitals as above well developed and + cachectic Eyes: PERRL, conjunctivae normal, anicteric sclerae ENMT: external ear and nose normal, oropharynx normal Neck: trachea midline, no thyromegaly Respiratory: normal respiratory effort, lungs clear to auscultation Cardiovascular: Rate/Rhythm: + bradycardic Gastrointestinal (Abdomen): normal bowel sounds, soft, nontender, no hepatosplenomegaly Musculoskeletal: no cyanosis or clubbing, extremities motor strength 5/5 Skin: no rashes, warm and dry Neurologic: patellar DTR's 2+ bilat, sensation intact Psychiatric: A+Ox3, euthymic affect Lymphatic: no cervical or axillary lymphadenopathy Results & Data ([facility]) Vital Signs (Past 12 Hours) Vital Signs Temp Pulse Pulse Resp BP BP Pulse Ox 09/19/19 06:00 48 L 19 163/72 H 09/19/19 05:31 50 L 16 153/75 H 09/19/19 05:02 44 L 19 169/89 H 09/19/19 04:31 51 L 20 160/75 H 100 09/19/19 04:16 53 L 21 181/66 H 09/19/19 04:01 36.5 C 60 25 H 173/96 H 09/19/19 03:46 51 L 28 H 172/59 H 100 09/19/19 03:31 44 L 21 154/67 H 100 09/19/19 03:21 36.5 C 47 L 18 167/66 H 100 09/19/19 03:16 48 L 17 178/72 H 99 09/19/19 03:01 49 L 18 184/97 H 98 09/19/19 02:59 48 L 09/19/19 02:56 47 L 18 167/67 H 09/19/19 00:45 44 L 14 160/62 H 100 09/19/19 00:33 50 L 18 198/79 H 100 09/18/19 23:16 67 61 20 100 09/18/19 22:58 36.8 C 38 L 18 179/67 H 100 PG Care Time/CCT Total # of Minutes Spent Total Time Spent with Patient: Total time spent is greater than 50% in coordination of care (as documented) at patient's floor/unit and/or counseling patient: Coding Level of Care Code 41156 Subseq Hosp Care Lvl 3 Diagnoses Third degree heart block I44.2 Admitted to intensive care unit Z78.9 Acute kidney injury N17.9 Abnormal LFTs R94.5 Dementia F03.90
[2019-09-19] MEDS ORDERED: LIDOCAINE HCL 1% 20 ML VIAL ONE (08:59)
[2019-09-19] MEDS ORDERED: BACITRACIN INJ 50,000 UNIT VIAL ONE (09:00)
[2019-09-19] MEDS ORDERED: BACITRACIN OINT 0.9 GM PKT ONE (09:00)
--- NOTE | 2019-09-19 09:01 | Cardiology Consultation ---
Date of Consultation September 19, 2019 Assessment & Plan (1) Third degree heart block: She presents with intermittent dizziness and documentation of intermittent complete heart block with pauses as long as 10 seconds. She has frequent episodes of 2-1 heart block. She has evidence of organ damage including a slightly elevated creatinine due to hypoperfusion. She is on no AV lasha blocking medications and there appears to be no reversible cause of her heart block. She requires a pacemaker. I discussed it with her, she is confused but in general agreeable. I also discussed it with her Sister Isatu Talavera who is power of attorney lawyer, we are all in agreement that she should have a pacemaker. I discussed the indications, procedure, risks and alternatives with them. We will take her emergently to the laboratory for pacemaker implantation. History of Present Illness Reason for Consultation: Complete heart block Attending Physician: Gregor Sanchez MD History of Present Illness This is an 88-year-old woman who does not have a cardiac history to my knowledge, she did have an echocardiogram in [place] in 2013 which was not significantly abnormal. She has been having intermittent dizziness and presented to the emergency room on September 18, 2019. She was having intermittent high-grade AV block and 2-1 AV block with occasional one-to-one AV conduction. She seems to be on no medications to cause AV conduction block. During long pauses (she had pauses as long as 10 seconds this morning) she loses consciousness which I witnessed. She does not recollect these events but has significant dementia. Allergies Allergy/AdvReac Type Severity Reaction Status Date / Time No Known Allergies Allergy Unverified 08/17/19 13:48 Home Medications Home Medications Medication Instructions Recorded Confirmed Type acetaminophen [Tylenol Extra 500 mg PO QID PRN MDD 3000 mg 08/17/19 09/18/19 History Strength] loratadine [Claritin] 10 mg PO DAILY PRN 08/17/19 09/18/19 History magnesium hydroxide [Milk of 30 ml PO DAILY 08/17/19 09/18/19 History Magnesia] ondansetron HCl [Zofran] 4 mg PO Q6H PRN 08/17/19 09/18/19 History oxycodone [Roxicodone] 5 mg PO DAILY PRN 08/17/19 09/18/19 History sennosides [Senokot] 8.6 mg PO DAILY 08/17/19 09/18/19 History Patient History Medical History Breast cancer Dementia HTN (hypertension) Surgical History No pertinent past surgical history Family History Other Family history non-contributory Social History Preferred Language: Algerian Communication Ability: Effective 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 HEENT: Unremarkable Neck: No jugular venous distention, carotid pulses are normal and equal bilaterally without bruits. Pulmonary: Clear to auscultation bilaterally. Cardiac: Regular rhythm with a soft systolic murmur, no gallop or rub. Abdomen: Soft, nontender with normal bowel sounds. Extremities: No edema. Distal pulses intact. Neurologic: No focal findings. Gait is steady. Skin: No rash, ecchymoses or petechiae. Results & Data Vital Signs (Past 12 Hours) Vital Signs Temp Pulse Pulse Resp BP BP Pulse Ox 09/19/19 08:00 76 09/19/19 07:30 71 19 154/61 H 100 09/19/19 07:01 78 17 147/88 H 100 09/19/19 06:00 48 L 19 163/72 H 09/19/19 05:31 50 L 16 153/75 H 09/19/19 05:02 44 L 19 169/89 H 09/19/19 04:31 51 L 20 160/75 H 100 09/19/19 04:16 53 L 21 181/66 H 09/19/19 04:01 36.5 C 60 25 H 173/96 H 09/19/19 03:46 51 L 28 H 172/59 H 100 09/19/19 03:31 44 L 21 154/67 H 100 09/19/19 03:21 36.5 C 47 L 18 167/66 H 100 09/19/19 03:16 48 L 17 178/72 H 99 09/19/19 03:01 49 L 18 184/97 H 98 09/19/19 02:59 48 L 09/19/19 02:56 47 L 18 167/67 H 09/19/19 00:45 44 L 14 160/62 H 100 09/19/19 00:33 50 L 18 198/79 H 100 09/18/19 23:16 67 61 20 100 09/18/19 22:58 36.8 C 38 L 18 179/67 H 100 Laboratory Results Cardiac Enzymes 09/18/19 09/19/19 Range/Units 22:23 04:29 AST 55 H 44 H (15-37) U/L CK-MB (CK-2) 2.2 (0.5-3.6) ng/ml Troponin I 0.021 (0-0.045) ng/ml Coagulation 09/18/19 09/19/19 Range/Units 22:23 04:29 PT 10.7 10.8 (9.0-12.0) Seconds APTT 25.9 25.5 (21.0-31.0) Seconds CBC 09/18/19 09/19/19 Range/Units 22:23 04:29 WBC 6.01 7.45 (4.8-10.8) K/uL RBC 4.20 4.32 (4.2-5.4) M/uL Hgb 12.4 13.0 (12.0-16.0) g/dL Hct 37.9 38.3 (37-47) % Plt Count 202 197 (130-400) K/uL Neut # (Auto) 3.35 5.32 (1.4-6.5) K/uL Lymph # (Auto) 1.87 1.33 (1.2-3.4) K/uL [place] # (Auto) 0.72 H 0.73 H (0.11-0.59) K/uL Eos # (Auto) 0.03 0.02 (0-0.5) K/uL Baso # (Auto) 0.01 0.01 (0-0.2) K/uL Comprehensive Metabolic Panel 09/18/19 09/19/19 Range/Units 22:23 04:29 Sodium 138 142 (136-145) mmol/L Potassium 4.2 3.5 D (3.5-5.1) mmol/L Chloride 107 112 H (98-107) mmol/L Carbon Dioxide 21 22 (21-32) mmol/L BUN 23 H 20 H (7-18) mg/dl Creatinine 1.39 H 1.20 (0.6-1.2) mg/dl Glucose 96 106 H (70-99) mg/dl Calcium 9.3 9.1 (8.5-10.1) mg/dl Direct Bilirubin 0.2 (0-0.2) mg/dl AST 55 H 44 H (15-37) U/L ALT 90 H 82 H (12-78) U/L Alkaline Phosphatase 93 92 (45-117) U/L Total Protein 7.6 7.5 (6.4-8.2) gm/dl Albumin 3.9 3.8 (3.4-5.0) gm/dl Intake and Output 09/18/19 09/19/19 09/19/19 22:59 06:59 14:59 Intake Total 579.597 / 579.597 0 / 0 Output Total 900 / 900 275 / 275 Balance -320.403 / -320.403 -275 / -275 Intake: IV 579.597 / 579.597 0 / 0 DOPAMINE / D5W 400 mg In 250 ml 29.597 / 29.597 0 / 0 @ 5 MCG/KG/MIN 11.963 mls/hr IV .[id number] [facility] Rx#:[id number] Nss 1000ML 500 ml @ 999 mls/hr 500 / 500 IV .Q31M ONE Rx#:[id number] Rocephin 1,000 mg In D5w 50 ml 50 / 50 @ 100 mls/hr IV Q24H [facility] Rx#: [id number] Output: Urine Amount (Catheter) 900 / 900 275 / 275 Lucas/Indwelling 900 / 900 275 / 275 Other: Weight 63.8 kg 60.6 kg Diagnostic Findings Electrocardiogram: Reviewed several electrocardiograms which show second-degree AV block, one is 2-1. She has a narrow complex conducted complex. Telemetry: Sinus rhythm with 2-1 heart block, occasional one-to-one conduction, multiple long pauses of up to 10 seconds due to complete heart block. PG Care Time/CCT Total # of Minutes Spent Total Time Spent with Patient: Total time spent is greater than 50% in coordination of care (as documented) at patient's floor/unit and/or counseling patient: Coding Level of Care Code 17120 Initial Inpt Care Lvl 3 Diagnoses Third degree heart block I44.2
--- NOTE | 2019-09-19 09:11 | Pre Anesthesia Assessment ---
Date of Service September 19, 2019 Pre Sedation Assessment Vital Signs Temp Pulse Pulse Resp BP BP Pulse Ox 09/19/19 08:00 76 09/19/19 07:30 71 19 154/61 H 100 09/19/19 07:01 78 17 147/88 H 100 09/19/19 06:00 48 L 19 163/72 H 09/19/19 05:31 50 L 16 153/75 H 09/19/19 05:02 44 L 19 169/89 H 09/19/19 04:31 51 L 20 160/75 H 100 09/19/19 04:16 53 L 21 181/66 H 09/19/19 04:01 36.5 C 60 25 H 173/96 H 09/19/19 03:46 51 L 28 H 172/59 H 100 09/19/19 03:31 44 L 21 154/67 H 100 09/19/19 03:21 36.5 C 47 L 18 167/66 H 100 09/19/19 03:16 48 L 17 178/72 H 99 09/19/19 03:01 49 L 18 184/97 H 98 09/19/19 02:59 48 L 09/19/19 02:56 47 L 18 167/67 H 09/19/19 00:45 44 L 14 160/62 H 100 09/19/19 00:33 50 L 18 198/79 H 100 09/18/19 23:16 67 61 20 100 09/18/19 22:58 36.8 C 38 L 18 179/67 H 100 Cardiovascular + regular rate and + bradycardic Respiratory normal respiratory effort, lungs clear to auscultation Pre-Sedation Airway Assessment Smoking Status: Unknown if ever smoked Hx Sleep Apnea: No Hx Difficult Intubation: No Short, Thick Neck: No Thyromental Distance: > or= 3.5 Finger Breadths Mallampati Class: II ASA: ASA3 NPO Status Date of Last Intake of Fluids: 09/18/19 Date of Last Intake of Solid Food: 09/18/19 Procedure Planning Contraindications for Sedation: none Current Medications Reviewed: Yes Notes The planned sedation has been discussed with the patient. Informed Consent was obtained. I have identified the patient, determined the appropriateness of sedation and have assessed the patient immediately prior to the procedure. All medicine(s) and interventions are by my order.
[2019-09-19] MEDS ORDERED: MIDAZOLAM HCL 1 MG/ML 2ML VIAL ONE (09:21)
[2019-09-19] MEDS ORDERED: CEFAZOLIN 250 MG/ML 1 GM VIAL ONE (09:21)
[2019-09-19] MEDS ORDERED: fentaNYL citrate 100 MCG/2 ML VIAL ONE ×2 (09:21→09:58)
[2019-09-19] MEDS ORDERED: LACTATED RINGER'S 1,000 ML IV SCH (10:00)
--- NOTE | 2019-09-19 10:25 | Electrophysiology Report ---
Date of Service September 19, 2019 Electrophysiology Procedure Electrophysiology Procedure Report Preop diagnosis: Complete heart block Postop diagnosis: Same Procedure: Dual-chamber pacemaker implantation Surgeon: Ceasar Shoemaker MD Estimated blood loss: 20 cc Complications: None Disposition: Cardiology recovery room Procedure description: After obtaining informed consent for the procedure from the patient's sister who is power of employment attorney, the patient was brought to the laboratory and prepped and draped in the standard sterile manner. The left prepectoral region was anesthetized with 1% lidocaine local anesthetic and left axillary venipuncture was performed by percutaneous technique and a guidewire placed through the left subclavian vein into the superior vena cava. The area was further infiltrated with 1% lidocaine local anesthetic and a 5 cm incision was made parallel to the left clavicle and 2 cm below it and carried down to the anterior pectoralis fascia. A pacemaker pocket was formed by blunt dissection anterior to the pectoralis fascia and a bacitracin-soaked sponge (50,000 units in 50 cc normal saline solution) was placed in the pocket. An 8 [place] Medtronic lead introducer was placed over the guidewire into the left subclavian vein, the dilator and guidewire were removed and a bipolar active fixation steroid tipped ventricular lead was advanced through the introducer into the superior vena cava. A guidewire was placed through the introducer and the introducer was stripped from the lead and guidewire. Another 8 [place] Medtronic lead introducer was placed over the guidewire into the left subclavian vein, the dilator and guidewire were removed and a bipolar active fixation steroid tipped atrial lead was advanced through the introducer into the superior vena cava. A guidewire was placed back through the introducer and the introducer was stripped from the lead and guidewire. Using a curved stylette the ventricular lead was advanced through the right ventricular outflow tract into the pulmonary artery and then using a straight stylette was positioned in the right ventricular apex. The screw was extended fixing the lead in position. Pacing and sensing thresholds were evaluated in bipolar configuration and are recorded on the implant data sheet. Using a curved stylette the atrial lead was positioned in the region of the atrial appendage and the screw extended fixing the lead in position. Pacing and sensing thresholds were evaluated in bipolar configuration and are recorded on the implant data sheet. Once the leads were in position they were attached to the anterior pectoralis fascia using 2 sutures of 2-0 silk around each lead collar. The bacitracin- soaked sponge was removed from the pocket, hemostasis was obtained, the pacemaker was attached to the leads and placed in the pocket with the leads coiled beneath it. The incision was closed with a running double subcutaneous closure of 3-0 Vicryl absorbable suture, followed by running subcuticular skin closure of 4-0 Vicryl absorbable suture. Bacitracin ointment was placed on the incision and a dressing applied. [facility] Electrophysiology codes Indication for Procedure (1) Third degree heart block: Pacing Procedure 1: Pacin Insert/Replace Pacer A & V
[2019-09-19] MEDS ORDERED: ACETAMINOPHEN 325 MG TAB PO PRN (10:27)
--- NOTE | 2019-09-19 11:06 | XCELERA ---
[id number] \\[id number]\[id number]
[2019-09-19] MEDS: HEPARIN SOD 5,000 UNIT/0.5 ML VIAL SQ SCH ×2 (11:19→21:28)
--- NOTE | 2019-09-19 12:07 | Electrocardiogram Report ---
Test Reason : Blood Pressure : / mmHG Vent. Rate : 036 BPM Atrial Rate : 036 BPM P-R Int : 178 ms QRS Dur : 088 ms QT Int : 548 ms P-R-T Axes : 058 041 035 degrees QTc Int : 423 ms Sinus rhythm with intermittent complete heart block Abnormal ECG When compared with ECG of 06-AUG-2019 03:05, Significant changes have occurred Confirmed by Mikhail Castillo ([id number]) on 09/19/2019 12:07:16 PM Referred By: Darcy De Confirmed By:Mikhail Castillo
--- NOTE | 2019-09-19 12:08 | Electrocardiogram Report ---
Test Reason : Blood Pressure : / mmHG Vent. Rate : 047 BPM Atrial Rate : 047 BPM P-R Int : 162 ms QRS Dur : 092 ms QT Int : 586 ms P-R-T Axes : 077 048 048 degrees QTc Int : 518 ms Sinus rhythm with 2:1 A-V conduction Prolonged QT Abnormal ECG When compared with ECG of 18-SEP-2019 22:56, (unconfirmed) QT has lengthened Confirmed by Mikhail Castillo ([id number]) on 09/19/2019 12:08:46 PM Referred By: Darcy De Confirmed By:Mikhail Castillo
--- NOTE | 2019-09-19 12:17 | Electrocardiogram Report ---
Test Reason : Blood Pressure : / mmHG Vent. Rate : 046 BPM Atrial Rate : 046 BPM P-R Int : 148 ms QRS Dur : 088 ms QT Int : 498 ms P-R-T Axes : 067 044 046 degrees QTc Int : 435 ms Sinus rhythm with 2:1 A-V conduction Nonspecific ST abnormality Abnormal ECG When compared with ECG of 18-SEP-2019 23:05, (unconfirmed) QT has shortened Confirmed by Mikhail Castillo ([id number]) on 09/19/2019 12:17:01 PM Referred By: Darcy De Confirmed By:Mikhail Castillo
--- NOTE | 2019-09-19 12:42 | Electrocardiogram Report ---
Test Reason : Blood Pressure : / mmHG Vent. Rate : 088 BPM Atrial Rate : 088 BPM P-R Int : 202 ms QRS Dur : 186 ms QT Int : 462 ms P-R-T Axes : 077 -68 087 degrees QTc Int : 559 ms Atrial-sensed ventricular-paced rhythm Abnormal ECG When compared with ECG of 19-SEP-2019 03:09, (unconfirmed) Significant changes have occurred Confirmed by Mikhail Castillo ([id number]) on 09/19/2019 12:42:16 PM Referred By: Darcy De Confirmed By:Mikhail Castillo
--- NOTE | 2019-09-19 16:22 | Post Anesthesia Assessment ---
Date of Service September 19, 2019 Post Sedation Assessment Vital Signs Temp Pulse Pulse Resp BP BP Pulse Ox 09/19/19 11:31 92 H 19 140/71 97 09/19/19 11:15 89 20 177/93 H 94 09/19/19 11:00 36.5 C 71 14 150/74 H 96 09/19/19 10:50 75 21 158/76 H 97 09/19/19 10:40 103 H 20 131/66 96 09/19/19 10:25 106 H 20 131/66 96 09/19/19 08:32 73 23 162/76 H 100 09/19/19 08:00 50 L 17 174/157 H 98 09/19/19 07:30 71 19 154/61 H 100 09/19/19 07:01 78 17 147/88 H 100 09/19/19 06:00 48 L 19 163/72 H 09/19/19 05:31 50 L 16 153/75 H 09/19/19 05:02 44 L 19 169/89 H 09/19/19 04:31 51 L 20 160/75 H 100 09/19/19 04:16 53 L 21 181/66 H 09/19/19 04:01 36.5 C 60 25 H 173/96 H 09/19/19 03:46 51 L 28 H 172/59 H 100 09/19/19 03:31 44 L 21 154/67 H 100 09/19/19 03:21 36.5 C 47 L 18 167/66 H 100 09/19/19 03:16 48 L 17 178/72 H 99 09/19/19 03:01 49 L 18 184/97 H 98 09/19/19 02:59 48 L 09/19/19 02:56 47 L 18 167/67 H 09/19/19 00:45 44 L 14 160/62 H 100 09/19/19 00:33 50 L 18 198/79 H 100 09/18/19 23:16 67 61 20 100 09/18/19 22:58 36.8 C 38 L 18 179/67 H 100 Recovery Score Activity: Moves 4 extremities Respiration: Deep Breath/Cough Circulation: +/-20% PreAnes Value Consciousness: Fully Awake Oxygen Saturation: > 92% On Room Air Post Anesthesia Score: 10 Discharge Sedation Level of Care: Fast Track Phase II Post Sedation Plan On clinical assessment, the patient appears to have tolerated the sedation without complications. Patient is recovering as anticipated. Patient will continue to be monitored by nursing and may be discharged when sedation discharge criteria are met per below protocol. Upon Completions of procedure up to 15 minutes continue every 5 minute vital signs and the P.A.R. score; then discharge to a Phase I or Fast Track to Phase II per the following guidelines: * Discharge Patient to appropriate Phase II area if PAR is 8 or greater or return to pre- procedure baseline. The post - procedure orders will be as directed. * If PAR score is less than 8 or not return to pre-procedure baseline then patient will follow Phase I monitoring till PAR is reached for Phase II. The Phase I may be done in procedure room or may call to secure a Phase I area. * If naloxone or flumazenil are used for reversal, hold in Phase I for continued monitoring from when last reversal dose was given for a minimum of 60 minutes or longer pending the nurse and/or physician discretion of patient condition before discharge to Phase II. Please call the Sedation Physician to re-evaluate and complete post-note for discharge to Phase II area. Do NOT discharge from procedure sedation or Phase 1 until post- sedation evaluation note is complete by procedure /sedation MD Sedation Discharge Instructions to be given to the patient at discharge to home.
[2019-09-19] MEDS ORDERED: OXYCODONE HCL IR 5 MG TAB (IMMEDIATE RELEASE) PO PRN (19:23)
[2019-09-19] MEDS ORDERED: ONDANSETRON 4 MG TAB PO PRN (19:23)
[2019-09-19] MEDS: SENNA 8.6 MG TAB PO SCH (21:08)
[2019-09-19] MEDS ORDERED: Nursing to Pharmacy Communication ONE (21:16)
[2019-09-20] MEDS ORDERED: Nursing to Pharmacy Communication ONE (04:00)
[2019-09-20] MEDS: cefTRIAXone SODIUM 1,000 MG in DEXTROSE 5% 50 ML IV SCH (04:13)
[2019-09-20] MEDS ORDERED: LACTATED RINGER'S 1,000 ML IV SCH ×2 (04:15→12:00)
[2019-09-20 06:16] LABS: Basophils # (auto) 0.01 K/uL (0-0.2); Basophils % (auto) 0.2 %; Eosinophils # (auto) 0.03 K/uL (0-0.5); Eosinophils % (auto) 0.6 %; Hematocrit (blood only) 32.2 % (37-47); Hemoglobin 10.4 g/dL (12.0-16.0); Immature Granulocytes # (auto) 0.01 K/uL (0.00-0.02); Immature Granulocytes % (auto) 0.2 %; Lymphocytes # (auto) 0.93 K/uL (1.2-3.4); Lymphocytes % (auto) 19.9 %; Mean Corpuscular Hemoglobin 29.3 pg (25-34); Mean Corpuscular Hgb Conc 32.3 g/dL (32-36); Mean Corpuscular Volume 90.7 fL (80-100); Mean Platelet Volume 11.4 fL (7.4-10.4); Monocytes # (auto) 0.56 K/uL (0.11-0.59); Neutrophils # (auto) 3.14 K/uL (1.4-6.5); Neutrophils % (auto) 67.1 %; Platelet Count 159 K/uL (130-400); RDW Coefficient of Variation 14.7 % (11.5-14.5); RDW Standard Deviation 48.8 fL (36.4-46.3); Red Blood Count 3.55 M/uL (4.2-5.4); White Blood Count 4.68 K/uL (4.8-10.8)
[2019-09-20 06:29] LABS: INR 1.1 (0.9-1.1); Partial Thromboplastin Ratio 1.2; Partial Thromboplastin Time 33.4 Seconds (21.0-31.0); Prothrombin Time 11.3 Seconds (9.0-12.0)
[2019-09-20 06:53] LABS: BUN Creatinine Ratio 17.1 (10-20); Bilirubin Direct 0.2 mg/dl (0-0.2); Bilirubin,Total 0.7 mg/dl (0.2-1); Calcium 8.3 mg/dl (8.5-10.1); Est GFR (African American) 71.9; Est GFR (Non-African American) 62.1; Magnesium 1.9 mg/dl (1.8-2.4); Phosphorus 3.3 mg/dl (2.5-4.9); Potassium 3.8 mmol/L (3.5-5.1); Total Protein 5.8 gm/dl (6.4-8.2)
--- NOTE | 2019-09-20 07:23 | Hospitalist Progress Note ---
Date of Service September 20, 2019 Assessment & Plan (1) Third degree heart block: Patient feels well today. She does not have any complaint. She ate her breakfast. Pacemaker placed in the left chest without issue, for intermittent third-degree heart block. The wound is clean dry and intact. Echocardiogram: Left ventricular systolic function is normal. No regional wall motion abnormality noted. There is borderline concentric left ventricular hypertrophy. Ejection fraction is 65 to 70%. 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 (2) Admitted to intensive care unit: Patient is admitted to the ICU due to symptomatic intermittent third- degree heart block. Patient received 0.5 mg atropine IV x1 in the ED, and dopamine infusion to maintain heart rate in the 40s, and allowing systolic blood pressure 150-160. As noted above, patient became symptomatic when heart rate was in the upper 20s to low 30s, and asymptomatic with atropine and dopamine as noted. (3) Acute kidney injury: Resolved (4) Abnormal LFTs: Resolved (5) Dementia: Patient has a history of baseline dementia, limiting HPI and ROS. Subjective Patient seen and examined at the bedside. Patient is postop day 2 for pacemaker placement. She tolerated it well. Her heart rate is well controlled right now. Patient continues to be severely demented and disoriented. This was discussed with her personal residential and they stated. Cardiology is okay to discharge patient to her personal home. Review of Systems Review of Systems: All systems reviewed & are unremarkable except as noted in HPI & below Physical Exam Constitutional: WD/WN, vitals as above well developed and + cachectic Eyes: PERRL, conjunctivae normal, anicteric sclerae ENMT: external ear and nose normal, oropharynx normal Neck: trachea midline, no thyromegaly Respiratory: normal respiratory effort, lungs clear to auscultation Cardiovascular: Rate/Rhythm: regular rate; not bradycardic Heart Sounds: normal S1 and normal S2 Gastrointestinal (Abdomen): normal bowel sounds, soft, nontender, no hepatosplenomegaly Musculoskeletal: no cyanosis or clubbing, extremities motor strength 5/5 Skin: no rashes, warm and dry Neurologic: patellar DTR's 2+ bilat, sensation intact Psychiatric: A+Ox3, euthymic affect Lymphatic: no cervical or axillary lymphadenopathy Results & Data ([facility]) Vital Signs (Past 12 Hours) Vital Signs Temp Pulse Pulse Resp BP Pulse Ox 09/20/19 03:27 37.3 C 76 20 168/79 H 95 09/19/19 23:50 37.4 C 72 18 168/82 H 96 09/19/19 23:39 86 PG Care Time/CCT Total # of Minutes Spent Total Time Spent with Patient: Total time spent is greater than 50% in coordination of care (as documented) at patient's floor/unit and/or counseling patient: Coding Level of Care Code 61415 Subseq Hosp Care Lvl 3 Diagnoses Third degree heart block I44.2 Admitted to intensive care unit Z78.9 Acute kidney injury N17.9 Abnormal LFTs R94.5 Dementia F03.90
[2019-09-20] MEDS ORDERED: ATROPINE SULFATE 0.1 MG/ML 10ML SYR IV ONE (08:22)
[2019-09-20] MEDS: SENNA 8.6 MG TAB PO SCH (08:47)
[2019-09-20] MEDS: HEPARIN SOD 5,000 UNIT/0.5 ML VIAL SQ SCH (08:49)
--- NOTE | 2019-09-20 10:46 | XRay Report ---
XR chest 2V PA/lateral HISTORY: 88 years-old Female Post pacer status post placement of a left subclavian pacer COMPARISON: Chest radiograph 09/18/2019 TECHNIQUE: AP and lateral views of the chest FINDINGS: Cardiac mediastinal and hilar silhouettes are unchanged. Calcified plaque of the thoracic aortic arch . Left subclavian pacer has been placed in the interval with leads overlying the expected locations o f the right atrium and right ventricle. There is no postprocedural pneumothorax identified. The leads appear intact. Unchanged right hemidiaphragmatic elevation with bibasilar opacities suggestive of sc arring/atelectasis. No overt pulmonary edema or new airspace consolidation. Suggested hiatal hernia. No large pleural effusion. Surgical clips of the right axilla. Degenerative changes of the shoulders and spine. IMPRESSION: Status post placement of a left subclavian pacer. No postprocedural pneumothorax. ACT 112: Negative or not required by law. The above report was generated using voice recognition software. It may contain grammatical, syntax o r spelling errors. Electronically signed by: Norm García M.D. 09/20/2019 10:45 AM
--- NOTE | 2019-09-20 12:55 | Cardiology Progress Note ---
Date of Service September 20, 2019 Assessment & Plan (1) Status post placement of cardiac pacemaker: She is doing well following pacemaker implantation yesterday. She continues to have intermittent heart block with appropriate ventricular pacing. The chest x-ray shows good lead position, measurements are good and the site looks good. She is stable for discharge from my standpoint. If she does go home today we can see her on Wednesday or she can have the incision checked at her place of residence if they feel comfortable doing that. In that case we should see her at 1 month. I am going to put discharge instructions in her discharge paperwork. Subjective She has no complaints today. She does not seem to have incisional discomfort. Physical Exam Physical Exam: Her pacemaker site is clean and dry with no bleeding, she does have some ecchymosis but no swelling or tenderness. Results & Data Vital Signs (Past 12 Hours) Vital Signs Temp Pulse Resp BP Pulse Ox 09/20/19 11:03 36.5 C 74 20 135/68 97 09/20/19 07:47 36.9 C 74 20 159/73 H 94 09/20/19 07:22 37.0 C 74 20 156/75 H 94 09/20/19 03:27 37.3 C 76 20 168/79 H 95 Diagnostic Findings Postop electrocardiogram: Atrial sensing and ventricular pacing appropriately Telemetry: Intermittent ventricular pacing and intrinsic conduction, appropriate pacemaker function Chest x-ray: Good lead position, no pneumothorax Pacemaker evaluation: Excellent pacing and sensing characteristics PG Care Time/CCT Total # of Minutes Spent Total Time Spent with Patient: Total time spent is greater than 50% in coordination of care (as documented) at patient's floor/unit and/or counseling patient: Coding Level of Care Code 26665 Post Operative Follow-Up Diagnoses Status post placement of cardiac pacemaker Z95.0 CPT Codes Dual Lead Pacemaker System - 81033 ([id number])
[2019-09-20] MEDS ORDERED: CEFDINIR 300 MG CAP PO SCH (13:00)
--- NOTE | 2019-09-20 15:14 | Discharge Summary ---
Date of Service September 20, 2019 Admission HPI Per Admitting Provider The patient is an 88-year-old female with a past medical history including hypertension, dementia, osteoarthritis, and allergic rhinitis. She is brought to the emergency department due to a few days of persistent lightheadedness, dizziness and fatigue. In the emergency department, work-up was significant for mildly abnormal laboratories: AST 55, ALT 90 and creatinine 1.39. Heart monitor and EKG confirmed intermittent third-degree heart block alternating with sinus bradycardia. The patient did become symptomatic with the third-degree heart block when her heart rate was in the 20s. She was given atropine 0.5 mg IV with improvement baseline heart rate and started on dopamine infusion. The patient became symptomatic when her systolic blood pressure remained in the 120s to 130s while her heart rate was in the 20s, which prompted the use of atropine and dopamine. Principal Diagnosis none Discharge Exam Constitutional WD/WN, vitals as above well developed and + cachectic Eyes PERRL, conjunctivae normal, anicteric sclerae ENMT external ear and nose normal, oropharynx normal Neck trachea midline, no thyromegaly Respiratory normal respiratory effort, lungs clear to auscultation Cardiovascular Rate/Rhythm: regular rate; not bradycardic Heart Sounds: normal S1 and normal S2 Gastrointestinal (Abdomen) normal bowel sounds, soft, nontender, no hepatosplenomegaly Musculoskeletal no cyanosis or clubbing, extremities motor strength 5/5 Skin no rashes, warm and dry Neurologic patellar DTR's 2+ bilat, sensation intact Psychiatric A+Ox3, euthymic affect Lymphatic no cervical or axillary lymphadenopathy Discharge Data Allergies Allergy/AdvReac Type Severity Reaction Status Date / Time No Known Allergies Allergy Unverified 08/17/19 13:48 Consultations 09/18/19 23:32 ED Decision to Admit Stat 09/19/19 00:21 Consult Cardiology Stat 09/19/19 03:12 Consult Case Management - Discharge Planning Routine Consult Drywall Boardhanger Routine Procedures Performed Operation Date: 09/19/19 09:00 Actual Procedures p Pacer with A/V Leads (Dual) - Ceasar Shoemaker MD Ordered Studies 09/19/19 04:13 US abdomen limited Routine 09/19/19 08:42 CL Cath Imgs for PACS use only Routine Hospital Course (1) Third degree heart block: Patient feels well today. She does not have any complaint. She ate her breakfast. Pacemaker placed in the left chest without issue, for intermittent third-degree heart block. The wound is clean dry and intact. Echocardiogram: Left ventricular systolic function is normal. No regional wall motion abnormality noted. There is borderline concentric left ventricular hypertrophy. Ejection fraction is 65 to 70%. 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 (2) Admitted to intensive care unit: Patient is admitted to the ICU due to symptomatic intermittent third- degree heart block. Patient received 0.5 mg atropine IV x1 in the ED, and dopamine infusion to maintain heart rate in the 40s, and allowing systolic blood pressure 150-160. As noted above, patient became symptomatic when heart rate was in the upper 20s to low 30s, and asymptomatic with atropine and dopamine as noted. (3) Acute kidney injury: Resolved (4) Abnormal LFTs: Resolved (5) Dementia: Patient has a history of baseline dementia, limiting HPI and ROS. Total Time Total Time Spent Total Time Spent (In Minutes): over 30 min Discharge Plan Discharge Items Patient Disposition: Personal Usp Reason For Visit: 3RD DEGREE HEART BLOCK Discharge Diagnosis: Third-degree heart block Condition on Discharge: Good Health Concerns: Severe dementia Activity: Per Instructions section Lifting: Gradually increase as tolerated Non-emergency contact: Primary Care Provider and Hotel Maintenance Technician Call non-emergency contact if: you have any medication questions, your symptoms worsen, your pain is not controlled, your pain is worsening, your pain is unusual for you, your pain is concerning for you and your temperature is above 101 Follow-up/Referrals: Darcy Petit [Primary Care Provider] - (Please make follow up appointment with Mabel West within one week.) Diet: Heart Healthy Addtl Attending Provider Instructions: ACTIVITY RECOMMENDATIONS: * Do not raise affected arm over head for 2 weeks. SPECIAL CARE INSTRUCTIONS: * If bleeding occurs, apply direct pressure to area for 5 minutes. * Call your doctor if you have severe pain, fever, drainage or bleeding at site. * Keep dressing on and dry for 48 hours then remove. * Keep any scheduled doctor's appointment. * Implant Card - hand held device with website information given. SKIN IRRITATION: * You may experience some redness and/or swelling in the area where radiation was administered. If any skin irritation occurs, please contact your family physician. FOLLOW UP VISIT: Keep any scheduled doctor appointments. Follow-up with PCP in 7 days. Pending Studies at Discharge: No Stand-Alone Forms: [facility], Smoking Cessation Skilled Items Patient informed of condition?: Yes DNR: No Discharge Level of Care: Other Communicable Disease: No Discharge Prognosis: Stable Lines: None Urinary Catheter: No Medications and DC Order Prescriptions: New cefdinir 300 mg Capsule 300 mg PO BID Qty: 10 RF: 0 Continued sennosides [Senokot] 8.6 mg tablet 8.6 mg PO DAILY RF: 0 ondansetron HCl [Zofran] 4 mg Tablet 4 mg PO Q6H PRN (Reason: Nausea And Vomiting) RF: 0 acetaminophen [Tylenol Extra Strength] 500 mg Tablet 500 mg PO QID MDD 3000 mg PRN (Reason: Pain) RF: 0 magnesium hydroxide [Milk of Magnesia] 400 mg/5 mL Suspension 30 ml PO DAILY RF: 0 loratadine [Claritin] 10 mg Tablet 10 mg PO DAILY PRN (Reason: Allergy Symptoms) RF: 0 oxycodone [Roxicodone] 5 mg Tablet 5 mg PO DAILY PRN (Reason: Pain) RF: 0 Discharge Orders: Discharge Order (Routine); Ordered 09/20/19 Ordered By: Gregor Sanchez Admission Data Admit Date/Time: 09/19/19 01:52 Attending Provider: Gregor Sanchez Admit Provider: Chuy Gillette Primary Care Provider: Darcy Petit Other Providers: Chuy Gillette ; Ok Mccloud ; Timothy Cox Coding Level of Care Code D/C Day Management >30 mins Diagnoses Third degree heart block I44.2 Admitted to intensive care unit Z78.9 Acute kidney injury N17.9 Abnormal LFTs R94.5 Dementia F03.90
== END 2019-09-20 16:56 | disposition home or self-care (01) | DRG 242 ==
LOC: ED 22:50 → 1E 09-19 01:52 → SUATTDRO 09-19 01:52 → 1E 09-19 02:18 → 2N 09-19 19:14